=== PATIENT | female | born 1950 ===

== ENCOUNTER 2017-02-20 09:58 | Emergency (ER) | payer MEDICAID ==
[2017-02-20 10:23] VITALS: TEMP 98.9
[2017-02-20 10:25] VITALS: BMI 32.4
[2017-02-20] MEDS ORDERED: Lidocaine 5% Patch TD STA (10:43)
[2017-02-20] MEDS ORDERED: Morphine 4 mg/ml ISec IVP STA (10:43)
--- NOTE | 2017-02-20 10:43 | ED PDOC ---
Arrival/HPI - General Chief Complaint: Back Pain Time Seen by Provider: 02/20/17 10:38 Historian: Patient - History of Present Illness Narrative History of Present Illness (Text): 02/20/17 10:40 66 y/o female, pmh including htn/hyperlipidemia/osteoporosis, allergic to shellfish, c/o lt. lower back pain radiating to the left lower extremity started yesterday and more severe today. aching and sharp pain, no urinary symptoms, no urinary or bowel incontinence/retention, no night sweat, no numbness or tingling, no flank or abdominal pain, no palpitation, no change in vision, no other medical or psychological complaints. Past Medical History - Provider Review Nursing Documentation Reviewed: Yes - Cardiac Hx Cardiac Disorders: Yes Hx Hypertension: Yes - Musculoskeletal/Rheumatological Hx Musculoskeletal Disorders: Yes Hx Osteoporosis: Yes - Gastrointestinal Hx Gastrointestinal Disorders: Yes Hx Gastritis: Yes - Psychiatric Hx Substance Use: No - Surgical History Hx Hysterectomy: Yes Hx Tonsillectomy: Yes Family/Social History - Physician Review Nursing Documentation Reviewed: Yes Family/Social History: Unknown Family HX Smoking Status: Never Smoked Hx Alcohol Use: No Hx Substance Use: No Allergies/Home Meds Allergies/Adverse Reactions: Allergies shellfish derived Allergy (Verified 02/20/17 10:22) VOMITING Home Medications: Home Meds Medication Instructions Recorded Confirmed Atorvastatin Calcium [Atorvastatin 20 mg PO DAILY 02/20/17 02/20/17 Calcium] Cholecalciferol (Vitamin D3) 2,000 units PO DAILY 02/20/17 02/20/17 [Vitamin D3] Famotidine [Pepcid] 20 mg PO PRN PRN 02/20/17 02/20/17 Ibandronate Sodium [Boniva] 150 mg PO DAILY 02/20/17 02/20/17 Lisinopril [Zestril] 10 mg PO DAILY 02/20/17 02/20/17 Review of Systems - Review of Systems Constitutional: absent: Fatigue, Fevers Eyes: absent: Vision Changes ENT: absent: Hearing Changes Respiratory: absent: SOB, Cough Cardiovascular: absent: Chest Pain Gastrointestinal: absent: Abdominal Pain, Diarrhea, Nausea, Vomiting Musculoskeletal: Back Pain, Myalgias. absent: Arthralgias, Neck Pain, Joint Swelling Skin: absent: Rash, Pruritis Physical Exam Vital Signs Reviewed: Yes Vital Signs Temp Pulse Resp BP Pulse Ox 02/20/17 12:12 66 18 168/79 H 97 02/20/17 11:18 69 18 170/80 H 97 02/20/17 10:22 98.9 F 68 20 173/82 H 99 Temperature: Afebrile Blood Pressure: Hypertensive Pulse: Regular Respiratory Rate: Normal Appearance: Positive for: Well-Appearing, Non-Toxic Pain Distress: Severe Mental Status: Positive for: Alert and Oriented X 3 - Systems Exam Head: Present: Atraumatic, Normocephalic Pupils: Present: PERRL Extroacular Muscles: Present: EOMI Conjunctiva: Present: Normal Mouth: Present: Moist Mucous Membranes Neck: Present: Normal Range of Motion Respiratory/Chest: Present: Clear to Auscultation, Good Air Exchange. No: Respiratory Distress, Accessory Muscle Use Cardiovascular: Present: Regular Rate and Rhythm, Normal S1, S2. No: Murmurs Abdomen: Present: Normal Bowel Sounds. No: Tenderness, Distention, Peritoneal Signs Back: Present: Normal Inspection, Midline Tenderness, Paraspinal Tenderness, Other (LS spine: +ttp on the midline lumbar and lt. paraspinal region, no rash, FROM without limitation but with pain, sensation intact, motor 5/5, no saddling gait, no rash. ). No: CVA Tenderness Upper Extremity: Present: Normal Inspection. No: Cyanosis, Edema Lower Extremity: Present: Normal Inspection. No: Edema Neurological: Present: GCS=15, CN II-XII Intact, Speech Normal Skin: Present: Warm, Dry, Normal Color. No: Rashes Psychiatric: Present: Alert, Oriented x 3, Normal Insight, Normal Concentration Medical Decision Making ED Course and Treatment: 02/20/17 10:46 -labs/ua -CT lumbar -IVF/morphine/zofran -observe and reassess 02/20/17 12:42 -labs are non-significant -UA show no UTI -CT Lumbar spine show: L3-L5 disc bulge, degenerative changes, no fracture or subluxation -Pain well controlled, will discharge home. -Discharge home with cane, lidoderm, tylenol, bed rest, follow up with your own pmd and pain management within 2 days, return to the ER for any new or worsening signs. - Lab Interpretations Lab Results: 02/20/17 11:42 02/20/17 11:42 Lab Results 02/20/17 11:42: Sodium 145, Potassium 4.6, Chloride 104, Carbon Dioxide 28, Anion Gap 18, BUN 14, Creatinine 0.6, Est GFR ( Amer) > 60, Est GFR (Non- Af Amer) > 60, Random Glucose 88, Calcium 10.1, Total Bilirubin 0.5, AST 29, ALT 51, Alkaline Phosphatase 124, Total Protein 8.4 H, Albumin 5.0 H, Globulin 3.4, Albumin/Globulin Ratio 1.5 02/20/17 11:42: WBC 9.6, RBC 4.69, Hgb 14.2, Hct 43.8, MCV 93.4, MCH 30.3, MCHC 32.4, RDW 14.0, Plt Count 299, MPV 10.7, Gran % 63.9, Lymph % (Auto) 27.5, [place] % (Auto) 7.4 H, Eos % (Auto) 1.1 L, Baso % (Auto) 0.1, Gran # 6.16, Lymph # 2.7 , [place] # 0.7 H, Eos # 0.1, Baso # 0.01 02/20/17 11:20: Urine Color Yellow, Urine Appearance Sl cloudy, Urine pH 6.5, Ur Specific [place] <= 1.005, Urine Protein Negative, Urine Glucose (UA) Negative, Urine Ketones Negative, Urine Blood Trace-intact H, Urine Nitrate Negative, Urine Bilirubin Negative, Urine Urobilinogen 0.2, Ur Leukocyte Esterase Negative, Urine RBC Negative, Urine WBC Negative, Ur Epithelial Cells 3 - 4, Urine Bacteria Few I have reviewed the lab results: Yes Interpretation: No clinic. lab abnormalty - RAD Interpretation Radiology Orders: 02/20/17 10:43 LUMBAR SPINE W/O CONTRAST [CT] Stat PROCEDURE: CT Lumbar Spine without contrast HISTORY: lt. lower back pain radiating to left lower extrem COMPARISON: None. TECHNIQUE: Axial computed tomography images were obtained of the lumbar spine without the use of intravenous contrast. Coronal and sagittal reformatted images were created and reviewed. Radiation dose: Total exam DLP = 661 mGy-cm. This CT exam was performed using one or more of the following dose reduction techniques: Automated exposure control, adjustment of the mA and/or kV according to patient size, and/or use of iterative reconstruction technique. FINDINGS: VERTEBRAE: Unremarkable. No fracture. Normal alignment. DISCS/SPINAL CANAL/NEURAL FORAMINA: L1-2: Unremarkable. L2-3: Unremarkable. L3-4: Mild to moderate disc bulge L4-5: Mild disc bulge L5-S1: Moderate facet arthropathy without stenosis PARASPINAL SOFT TISSUES: Unremarkable. OTHER FINDINGS: None. IMPRESSION: Mild degenerative changes. No evidence of stenosis. No evidence of compression fracture Regional Operations Manager: Radiologist - Medication Orders Current Medication Orders: Sodium Chloride (Sodium Chloride 0.9%) 1,000 mls @ 100 mls/hr IV .Q10H RAMY Last Admin: 02/20/17 11:18 Dose: 100 mls/hr Discontinued Medications Lidocaine (Lidoderm) 1 ea TD STAT STA Stop: 02/20/17 10:44 Last Admin: 02/20/17 11:17 Dose: 1 ea Morphine Sulfate (Morphine) 4 mg IVP STAT STA Stop: 02/20/17 10:44 Last Admin: 02/20/17 11:17 Dose: 4 mg Ondansetron HCl (Zofran Inj) 4 mg IVP STAT STA Stop: 02/20/17 10:47 Last Admin: 02/20/17 11:17 Dose: 4 mg - PA / HUMAN RESOURCES PROFESSIONAL / Resident Statement /DO has reviewed & agrees with the documentation as recorded. Disposition/Present on Arrival - Present on Arrival Any Indicators Present on Arrival: No History of DVT/PE: No History of Uncontrolled Diabetes: No Urinary Catheter: No History of Decub. Ulcer: No History Surgical Site Infection Following: None - Disposition Have Diagnosis and Disposition been Completed?: Yes Diagnosis: Back pain, Osteoarthritis, Lumbar radiculopathy, acute Disposition: HOME/ ROUTINE Disposition Time: 12:44 Patient Plan: Discharge Condition: IMPROVED Additional Instructions: -Discharge home with cane, lidoderm, tylenol, bed rest, follow up with your own pmd and pain management within 2 days, return to the ER for any new or worsening signs. Prescriptions: Acetaminophen [Tylenol 325mg tab] 2 tab PO QID PRN #35 tab PRN Reason: Other Lidocaine 5% [Lidoderm] 1 patch TOP DAILY PRN #14 patch PRN Reason: Other Forms: [employer] ([place]ali)
[2017-02-20] MEDS ORDERED: Sodium Chloride 0.9% 1,000 ML IV SCH (10:45)
[2017-02-20 11:31] LABS: PH,URINE 6.5 (4.7-8.0); URINE BILIRUBIN NEGATIVE (NEGATIVE); URINE BLOOD TRACE-INTACT (NEGATIVE); URINE GLUCOSE (UA) NEGATIVE (NEGATIVE); URINE KETONE NEGATIVE (NEGATIVE); URINE LEUKOCYTE ESTERASE NEGATIVE Leu/uL (NEGATIVE); URINE PROTEIN NEGATIVE mg/dL (<30 mg/dL); URINE UROBILINOGEN 0.2 E.U./dL (<1 E.U./dL)
[2017-02-20 11:32] LABS: URINE APPEARANCE SL CLOUDY (CLEAR); URINE COLOR YELLOW (YELLOW)
[2017-02-20 11:35] LABS: URINE BACTERIA FEW (NEG); URINE RBC NEGATIVE /hpf (0-2); URINE WBC NEGATIVE /hpf (0-6)
[2017-02-20 11:47] LABS: BASO # 0.01 K/mm3 (0.0-2.0); BASO % 0.1 % (0.0-3.0); EOS # 0.1 (0.0-0.7); EOS % 1.1 % (1.5-5.0); GRAN # 6.16 (1.4-6.5); GRAN % 63.9 % (50.0-68.0); HEMATOCRIT 43.8 % (36.0-48.0); LYMPH # 2.7 (1.2-3.4); LYMPH % 27.5 % (22.0-35.0); MEAN CELL VOLUME 93.4 fl (80.0-105.0); MEAN CORPUSCULAR HEMOGLOBIN 30.3 pg (25.0-35.0); MEAN CORPUSCULAR HGB CONC 32.4 g/dl (31.0-37.0); MEAN PLATELET VOLUME 10.7 fl (7.0-11.0); MONO # 0.7 (0.1-0.6); MONO % 7.4 % (1.0-6.0); WHITE BLOOD COUNT 9.6 10^3/ul (4.5-11.0)
[2017-02-20 11:57] LABS: ALB/GLOB RATIO 1.5 (1.1-1.8); ALKALINE PHOSPHATASE 124 U/L (38-133); ALT/SGPT 51 U/L (7-56); AST/SGOT 29 U/L (15-39); BILIRUBIN,TOTAL 0.5 mg/dL (0.2-1.3); BLOOD UREA NITROGEN 14 mg/dL (7-21); CALCIUM 10.1 mg/dL (8.4-10.5); CARBON DIOXIDE 28 mmol/L (21-33); CHLORIDE 104 mmol/L (98-107); GFR AFRICAN-AMERICAN > 60; GLUCOSE,RANDOM 88 mg/dL (70-110); POTASSIUM 4.6 mmol/L (3.6-5.0); SODIUM 145 mmol/L (132-148); TOTAL PROTEIN 8.4 g/dL (5.8-8.3)
--- NOTE | 2017-02-20 12:30 | CT ---
PROCEDURE: CT Lumbar Spine without contrast HISTORY: lt. lower back pain radiating to left lower extrem COMPARISON: None. TECHNIQUE: Axial computed tomography images were obtained of the lumbar spine without the use of intravenous contrast. Coronal and sagittal reformatted images were created and reviewed. Radiation dose: Total exam DLP = 661 mGy-cm. This CT exam was performed using one or more of the following dose reduction techniques: Automated exposure control, adjustment of the mA and/or kV according to patient size, and/or use of iterative reconstruction technique. FINDINGS: VERTEBRAE: Unremarkable. No fracture. Normal alignment. DISCS/SPINAL CANAL/NEURAL FORAMINA: L1-2: Unremarkable. L2-3: Unremarkable. L3-4: Mild to moderate disc bulge L4-5: Mild disc bulge L5-S1: Moderate facet arthropathy without stenosis PARASPINAL SOFT TISSUES: Unremarkable. OTHER FINDINGS: None. IMPRESSION: Mild degenerative changes. No evidence of stenosis. No evidence of compression fracture
[2017-02-20 13:10] VITALS: BP 165/80; PULSE 64; RESP 17; O2SAT 99
== END 2017-02-20 13:10 | disposition home or self-care (01) ==
LOC: ED 09:58
DX: M54.16 Radiculopathy, lumbar region (principal); M19.90 Unspecified osteoarthritis, unspecified site; M54.5 Low back pain; M81.0 Age-related osteoporosis without current pathological fracture; E78.5 Hyperlipidemia, unspecified; I10 Essential (primary) hypertension; Z91.013 Allergy to seafood
CPT/HCPCS: 72131; 80053; 81001; 85025; 96361; 96374; 96375; 99285; J2270; J2405; J7040

== ENCOUNTER 2018-11-22 14:53 | Outpatient (CLI) | payer MEDICAID | END 2018-11-22 14:54 | disposition home or self-care (01) | LOC: RAD 14:53 ==